=== PATIENT | female | born 1995 | race Caucasian/White ===

== ENCOUNTER 2020-07-29 04:58 | Inpatient (IN) | payer OTHER, SELFPAY ==
[2020-07-29] VITALS (100 sets, daily range): BP systolic 94–156; BP diastolic 48–99; PULSE 37–107; RESP 16–18; TEMP 36.4–37.1; O2SAT 97–100; BMI 25.4
--- NOTE | 2020-07-29 05:27 | LDADM ---
This patient, Maureen Monique, was admitted to Labor/Delivery/Recovery 104 on 07/29/20 at 04:58. Plans for labor, pain management and were discussed with patient. Patient/family oriented to hospital policies and general routines including ID bracelet, bed and alarms, visiting hours, pain management, procedures, bathroom and other care routines, personal items, smoking policy, room service/diet and guest tray routines, infant security routines, and visiting hours. Patient/Family are encouraged to report perceived risks to care and to ask questions if they do not understand what they are told or what they should do. See OBIX for further documentation.
[2020-07-29 05:30] LABS: Basophils Percent Auto 0.4 % (0.2-1.2); Eosinophils Absolute Auto 0.1 K/mm3 (0-0.3); Eosinophils Percent Auto 1.1 % (0-4.4); Hematocrit 28.2 % (37.0-47.0); Immature Granulocyte Absolute 0.19 K/mm3 (0.00-0.031); Immature Granulocyte Percent A 1.9 % (0-0.5); Lymphocytes Absolute Auto 2.36 K/mm3 (0.9-3.2); Lymphocytes Percent Auto 23.7 % (18.3-44.2); Mean Corpuscular HGB Conc 31.9 g/dl (32-36); Mean Corpuscular Hemoglobin 27.9 pg (26-34); Mean Corpuscular Volume 87.3 fl (80-100); Mean Platelet Volume 9.6 fl (7.4-10.4); Monocytes Absolute Auto 0.8 K/mm3 (0.1-0.6); Monocytes Percent Auto 7.7 % (2.6-8.5); Neutrophils Absolute Auto 6.5 K/mm3 (1.3-6.7); Neutrophils Percent Auto 65.2 % (45.5-73.1); Platelet Count Result 260 k/mm3 (150-375); Red Blood Count 3.23 M/mm3 (4.2-5.4); Red Cell Distribution Width 13.1 % (11.5-14.5)
[2020-07-29] MEDS: LACTATED RINGERS 1,000 ML 125 ML IV CONT ×2 (05:36→06:58)
[2020-07-29] MEDS: OXYTOCIN 30 UNITS/NS 500 ML 30 UNITS/500 ML BAG IV CONT (05:36)
[2020-07-29 05:47] LABS: Amphetamine Screen Urine Negative (Negative); Barbiturate Screen Urine Negative (Negative); Benzodiazepines Screen Urine Negative (Negative); Cannabinoid Screen Urine Positive (Negative); Cocaine Screen Urine Negative (Negative); Methadone Screen Urine Negative (Negative); Opiate Screen Urine Negative (Negative); Phencyclidine Screen Urine Negative (Negative)
[2020-07-29 06:46] LABS: Rapid Plasma Reagin Non-Reactive (NonReactive)
--- NOTE | 2020-07-29 07:43 | PM.IMHP ---
H&P: HPI History of Present Illness Date/Time: 07/29/20 07:43 whose last menstrual period was in November, EDC is 08/01 21x18 week ultrasound, presents at 39 weeks gestation for induction of labor. She is negative for group B strep in her has been uncomplicated her cervix is favorable Chief Complaint: iol Review of Systems Review of Systems: All systems reviewed & are unremarkable except as noted in HPI and below PMFSH Family History Family History Grandparent Diabetes mellitus Social History Social History Years smoked: 5 Smoking status: Former smoker Substance use: unknown Spiritual care concerns: No Meds Home Medications and Allergies Home Medications Medication Instructions Recorded Confirmed Type prenat.vits,sara,irh-[id number] 1 tablet PO DAILY 07/07/20 07/07/20 History [ #2] Allergies Allergy/AdvReac Type Severity Reaction Status Date / Time No Known Allergies Allergy Verified 07/07/20 15:25 Vital Signs Vital Signs - 24 hr 07/29/20 05:41 07/29/20 05:45 07/29/20 05:54 Temperature 98.8 F Pulse Rate 83 79 Blood Pressure 113/56 L 115/66 Pulse Oximetry 07/29/20 06:00 07/29/20 06:15 07/29/20 06:45 Temperature Pulse Rate 58 L 60 107 H Blood Pressure 110/70 105/68 94/72 L Pulse Oximetry 07/29/20 07:02 07/29/20 07:04 07/29/20 07:05 Temperature Pulse Rate 74 78 Blood Pressure 118/77 115/62 Pulse Oximetry 100 07/29/20 07:07 07/29/20 07:09 07/29/20 07:10 Temperature Pulse Rate 65 59 L Blood Pressure 115/77 117/71 Pulse Oximetry 100 07/29/20 07:12 07/29/20 07:15 07/29/20 07:17 Temperature Pulse Rate 72 67 Blood Pressure 121/80 115/66 Pulse Oximetry 100 100 07/29/20 07:18 07/29/20 07:21 07/29/20 07:22 Temperature Pulse Rate 69 55 L Blood Pressure 117/75 115/77 Pulse Oximetry 100 07/29/20 07:24 07/29/20 07:27 07/29/20 07:30 Temperature Pulse Rate 75 57 L 63 Blood Pressure 106/66 112/79 113/77 Pulse Oximetry 100 07/29/20 07:32 07/29/20 07:33 07/29/20 07:36 Temperature Pulse Rate 56 L 55 L Blood Pressure 115/72 111/70 Pulse Oximetry 100 07/29/20 07:37 07/29/20 07:39 07/29/20 07:42 Temperature Pulse Rate 57 L Blood Pressure 112/59 L Pulse Oximetry 100 100 Exam Const: General: no acute distress Eyes: General: appearance normal, both eyes and all related structures Neck: Neck: supple and no JVD Thyroid: thyroid normal Resp: Effort & Inspection: normal respiratory effort Auscultation: clear to auscultation bilaterally Cardio: Rate: regular rate Rhythm: regular rhythm GI: Inspection: non-distended GI Palp: Yes Soft to palpation, No Tenderness to palpation present (GI) and No Guarding due to palpation present (GI) Auscultation: normal bowel sounds : External Female Exam: normal external appearance Speculum Exam - Vagina: normal appearance of the vagina Speculum Exam - Cervix: normal appearance of the cervix ( cervix 4/80/1. AROM light meconium. FHTs were reassuring) Skin: General skin exam: no rashes or lesions noted Extrem: General: normal to inspection and no edema Psych: Mental Status: mental status grossly normal Affect: normal affect H&P: Results Labs Labs: Short CBC 07/29/20 Range/Units 05:25 WBC 10.0 (4.5-10.0) K/mm3 Hgb 9.0 L (12.0-15.0) g/dL Hct 28.2 L (37.0-47.0) % Plt Count 260 (150-375) k/mm3 Assessment and Plan Additional Plan impression: Term with favorable cervix Plan: Lateral vaginal labor. Spontaneous vaginal delivery is expected. Epidural In and working. Peds will be made aware of meconium fluid
[2020-07-29] MEDS: ONDANSETRON INJ 4 MG/2 ML VIAL IV PUSH (07:48)
--- NOTE | 2020-07-29 08:06 | WPDANESEPPF ---
Anes - Initial Pre Proc Eval Procedure: labor epidural Date/Time: 07/29/20 08:06 Surgeon: Man Escalera MD Pre Op Diagnosis: labor pain Pre Op Diagnosis: Induction Patient Data Age: 25 Gender: F Height: 1.73 m Weight: 76 kg Last Vital Signs Temp 37.1 C 07/29/20 05:54 Pulse 54 L 07/29/20 08:00 BP 102/58 L 07/29/20 08:00 Pulse Ox 100 07/29/20 08:02 Allergies Allergy/AdvReac Type Severity Reaction Status Date / Time No Known Allergies Allergy Verified 07/07/20 15:25 Home Medications Medication Instructions Recorded Confirmed Type prenat.vits,sara,vjg-gevr-sumus 1 tablet PO DAILY 07/07/20 07/07/20 History [ #2] Laboratory Tests 07/29/20 07/29/20 07/29/20 05:25 05:25 05:25 WBC 10.0 K/mm3 K/mm3 (4.5-10.0) RBC 3.23 M/mm3 L M/mm3 (4.2-5.4) Hgb 9.0 g/dL L g/dL (12.0-15.0) Hct 28.2 % L % (37.0-47.0) MCV 87.3 fl fl (80-100) MCH 27.9 pg pg (26-34) MCHC 31.9 g/dl L g/dl (32-36) RDW 13.1 % % (11.5-14.5) Plt Count 260 k/mm3 k/mm3 (150-375) MPV 9.6 fl fl (7.4-10.4) Immature Gran % (Auto) 1.9 % H % (0-0.5) Neut % (Auto) 65.2 % % (45.5-73.1) Lymph % (Auto) 23.7 % % (18.3-44.2) [place] % (Auto) 7.7 % % (2.6-8.5) Eos % (Auto) 1.1 % % (0-4.4) Baso % (Auto) 0.4 % % (0.2-1.2) Lymph # (Auto) 2.36 K/mm3 K/mm3 (0.9-3.2) [place] # (Auto) 0.8 K/mm3 H K/mm3 (0.1-0.6) Eos # (Auto) 0.1 K/mm3 K/mm3 (0-0.3) Baso # (Auto) 0.0 K/mm3 K/mm3 (0.0-0.1) Abs Immat Gran (auto) 0.19 K/mm3 H K/mm3 (0.00-0.031) Absolute Neuts (auto) 6.5 K/mm3 K/mm3 (1.3-6.7) Absolute Nucleated RBC 0.0 K/mm3 K/mm3 (0.0-0.012) Nucleated RBC % 0.0 % % (0.0-0.2) Urine Opiates Screen Urine Methadone Screen Ur Barbiturates Screen Ur Phencyclidine Scrn Ur Amphetamine Screen U Benzodiazepines Scrn Urine Cocaine Screen U Cannabinoids Screen RPR Non-reactive (NonReactive) Blood Type O Positive Antibody Screen Negative 07/29/20 05:25 WBC RBC Hgb Hct MCV MCH MCHC RDW Plt Count MPV Immature Gran % (Auto) Neut % (Auto) Lymph % (Auto) [place] % (Auto) Eos % (Auto) Baso % (Auto) Lymph # (Auto) [place] # (Auto) Eos # (Auto) Baso # (Auto) Abs Immat Gran (auto) Absolute Neuts (auto) Absolute Nucleated RBC Nucleated RBC % Urine Opiates Screen Negative (Negative) Urine Methadone Screen Negative (Negative) Ur Barbiturates Screen Negative (Negative) Ur Phencyclidine Scrn Negative (Negative) Ur Amphetamine Screen Negative (Negative) U Benzodiazepines Scrn Negative (Negative) Urine Cocaine Screen Negative (Negative) U Cannabinoids Screen Positive A (Negative) RPR Blood Type Antibody Screen Patient hx anesthesia problems: none Family hx anesthesia problems: none PMFSH Family History Family History Grandparent Diabetes mellitus Social History Social History Years smoked: 5 Smoking status: Former smoker Substance use: unknown Spiritual care concerns: No Anes - Eval Final PreProcedure Day of Procedure 07/29/20 08:06 Patient weight: overweight ASA classification: II Anesthesia type and monitoring: regional epidural Informed Consent: The patient's anesthetic plan and its attendant risks and benefits were discussed with the patient/family/POA. Questions were solicited and answers prov
--- NOTE | 2020-07-29 08:48 | PM.OBPRVD ---
OB - Delivery Note Procedure Delivery date: 07/29/20 Procedure: mil Intrapartal events: None Induction method: AROM Delivery augmentation: pitocin Delivery monitor: external FHT Route of delivery: Episiotomy description: None Laceration Description: None Specimen: No Quantitative Blood Loss (ml): 58 Disposition: floor Baby Date of : 07/29/20 Time of : 08:41 Weeks of gestation at delivery: 39 Infant gender: Female Weight (pounds): 8 Weight (ounces): 1 presentation: vertex position: Right Occiput Anterior Placenta delivery description: Spontaneous cord vessel description: 3 Vessels score one minute: 8 score five minutes: 9 Narrative: mec present
[2020-07-29] MEDS: OXYTOCIN 30 UNITS/NS 500 ML 30 UNITS/500 ML BAG 125 UNITS IV CONT (09:12)
[2020-07-29] MEDS: METHYLERGONOVINE MALEATE 0.2 MG/ML VIAL IM (10:02)
[2020-07-29] MEDS: LACTATED RINGERS 1,000 ML 999 ML (10:25)
--- NOTE | 2020-07-29 12:45 | PC.NURSE ---
Patient transferred to post room # 290 per wheelchair. Support person present. Oriented to unit, room, information board, rooming in, admission packet and security measures. Patient verbalizes understanding.
[2020-07-29] MEDS: IBUPROFEN 600 MG TABLET PO (17:19)
[2020-07-29] MEDS: POLYSACCHARIDE IRON COMPLEX 150 MG CAPSULE PO (17:20)
[2020-07-29] MEDS: DOCUSATE SODIUM 100 MG CAPSULE PO (17:20)
[2020-07-29] MEDS: ACETAMINOPHEN 325 MG TABLET 650 MG PO (22:12)
[2020-07-30] VITALS: BP 96/52; PULSE 60; RESP 16; TEMP 36.5; O2SAT 98
[2020-07-30 04:00] VITALS: BP 102/55; PULSE 76; RESP 16; TEMP 36.6; O2SAT 98
[2020-07-30 05:35] LABS: Hematocrit 23.1 % (37.0-47.0); Hemoglobin 7.3 g/dL (12.0-15.0)
--- NOTE | 2020-07-30 06:52 | PM.DS ---
DS: Admitting Diagnosis Admitting Diagnosis Admitting Diagnosis: term iup DS: Summary Hospital Course Hospital Course: The patient was admitted for induction of labor. She underwent uncomplicated spontaneous vaginal delivery. Her course was unremarkable. She remained afebrile. She was up, voiding without difficulty, ambulating, eating regular diet, and generally without complaints Time Spent with Patient Time attestation: Total time spent providing and/or coordinating discharge services: Exam Const: General: no acute distress Eyes: General: appearance normal, both eyes and all related structures Neck: Neck: supple and no JVD Thyroid: thyroid normal Resp: Effort & Inspection: normal respiratory effort Auscultation: clear to auscultation bilaterally Cardio: Rate: regular rate Rhythm: regular rhythm GI: Inspection: non-distended GI Palp: Yes Soft to palpation, No Tenderness to palpation present (GI) and No Guarding due to palpation present (GI) Auscultation: normal bowel sounds : General: Yes bladder normal to palpation External Female Exam: normal external appearance Speculum Exam - Vagina: normal vaginal discharge and No vaginal bleeding Speculum Exam - Cervix: nontender Bimanual exam- vagina & uterus: bladder normal to palpation and No Cervical tenderness present OB/external & speculum: No vaginal bleeding Skin: General skin exam: no rashes or lesions noted Extrem: General: normal to inspection and no edema Psych: Mental Status: mental status grossly normal Affect: normal affect DS: Data Data Completed and Pending Labs on day of discharge: Labs from last 24 hours 07/30/20 05:24 Hgb 7.3 L Hct 23.1 L Discharge Plan Discharge Attending physician on discharge: Man Escalera Consulting providers: Javed Saunders Jr. Discharging Clinician: Man Escalera Patient Disposition: Home, Self-Care Activity: may shower and pelvic rest Diet: heart healthy Wound Care Instructions: follow printed instructions Patient Instructions: Antibiotic Form Stand Alone Forms: General Discharge Information Follow-up/Referrals: Man Escalera MD [Physician] - Discharge Medications: Continued #2 Tablet 1 tablet PO DAILY RF: 0 Date of admission: 07/29/20 04:58 Primary Care Provider: PHYSICIAN,DIRECTOR OF ANNUAL GIVING Admitting Provider: Man Escalera Attending physician on admission: Man Escalera Condition: Stable
--- NOTE | 2020-07-30 06:53 | P.PNOB_ITS ---
OB - PN: Subj Subjective Date/time seen: 07/30/20 06:53 Patient comments: no complaints and pain well controlled baby status: doing well OB - PN: Obj Data Labs CBC & Chem 7: 07/30/20 05:24 Labs: Laboratory Results - last 24 hr 07/30/20 05:24 Hgb 7.3 L Hct 23.1 L OB - PN A/P Plan day: 1 Plan: routine care, discharge home and follow up 6 weeks Time Spent With Patient Time: Total time spent is greater than 50% in coordination of care (as documented) at patient's floor/unit and/or counseling patient: Time with patient: less than 15 minutes Review of Systems Review of Systems: All systems reviewed & are unremarkable except as noted in HPI and below Exam Const: General: no acute distress Eyes: General: appearance normal, both eyes and all related structures Neck: Neck: supple and no JVD Thyroid: thyroid normal Resp: Effort & Inspection: normal respiratory effort Auscultation: clear to auscultation bilaterally Cardio: Rate: regular rate Rhythm: regular rhythm GI: Inspection: non-distended GI Palp: Yes Soft to palpation, No Tenderness to palpation present (GI) and No Guarding due to palpation present (GI) Auscultation: normal bowel sounds : General: Yes bladder normal to palpation External Female Exam: normal external appearance Speculum Exam - Vagina: normal vaginal discharge and No vaginal bleeding Speculum Exam - Cervix: nontender Bimanual exam- vagina & uterus: bladder normal to palpation and No Cervical tenderness present O B/external & speculum: No vaginal bleeding Skin: General skin exam: no rashes or lesions noted Extrem: General: normal to inspection and no edema Psych: Mental Status: mental status grossly normal Affect: normal affect
[2020-07-30 07:15] VITALS: BP 99/49; PULSE 65; RESP 16; TEMP 35.9; O2SAT 100
[2020-07-30] MEDS: POLYSACCHARIDE IRON COMPLEX 150 MG CAPSULE PO (07:23)
[2020-07-30] MEDS: IBUPROFEN 600 MG TABLET PO (07:23)
[2020-07-30] MEDS: DOCUSATE SODIUM 100 MG CAPSULE PO (07:23)
--- NOTE | 2020-07-30 08:25 | PC.NURSE ---
Patient was given the opportunity to view the discharge video Mother & Baby Care, The First Two Weeks and to ask questions. Patient declined viewing the video and has been given the mother/baby guide for home reference.
--- NOTE | 2020-07-30 08:34 | WPDANLDPN2 ---
Anes-Prog Note L&D Date/Time: 07/30/20 08:34 Comfortable throughout: labor and delivery Neuraxial method: epidural Epidural/Spinal procedure site: clean & non-tender Neuro status: Neuro function grossly intact. Cardiovascular status: normal Respiratory status: normal Airway patency: baseline Mental status: baseline Post-Op hydration status: normal Vital Signs: Last Vital Signs Temp 35.9 C L 07/30/20 07:15 Pulse 65 07/30/20 07:15 Resp 16 07/30/20 07:15 BP 99/49 L 07/30/20 07:15 Pulse Ox 100 07/30/20 07:15 Pain score (VAS): 1 Post-procedural complaints: none Patient feedback: Patient satisfied with anesthetic care.
--- NOTE | 2020-07-30 09:25 | PCCCNOTE ---
Care Coordination Note: Received consultation regarding positive marijuana use. Met with pt. who reports this is her third child. Pt. has a four and five year old at home. FOB for Baby Girl Eneida name is Frankie who is also FOB to other children. Pt. lives at home with Frankie and reports she has a supportive family and friends. Has all necessary supplies including a car seat, crib, clothing, diapers and bottles. Pt. reports she has saved a lot of belongings from her first two girls to use for this baby. Pt. has used [facility] services before with her first child however reports she has no plans to use services at discharge. resources were provided to pt. for informational purposes only. Pt. is upfront with marijuana use, reports she was recreationally using. Denies any other substance use. Denies any addiction to marijuana and refuses substance abuse resources. Pt. is aware that baby is also positive for marijuana in urine, meconium is pending at this time. Submitted online DCFS report # [id number]. Pt. denies any further needs. Discharging home today.
[2020-07-31 11:08] VITALS: BP 98/60; PULSE 80; RESP 20; TEMP 37; O2SAT 100
== END 2020-07-30 11:55 | disposition home or self-care (01) | DRG 560 ==
LOC: ANHLDR 05:03 → ANHOB2 12:50
PROVIDERS: Admitting Provider Obstetrics & Gynecology; Visit Provider Obstetrics & Gynecology
DX: O99.324 Drug use complicating childbirth (principal); Z37.0 Single live birth; Z3A.39 39 weeks gestation of pregnancy; F12.90 Cannabis use, unspecified, uncomplicated; O62.3 Precipitate labor; F15.99 Other stimulant use, unspecified with unspecified stimulant-induced disorder; O77.0 Labor and delivery complicated by meconium in amniotic fluid
CPT/HCPCS: 36415; 80307; 85014; 85018; 85025; 86592; 86850; 86900; 86901; A9270; J2210; J2405; J2590; J2795; J7120